=== PATIENT | male | born 1940 | race Caucasian/White ===

== ENCOUNTER 2018-11-04 16:18 | Inpatient (IN) | payer OTHER ==
[~2018-11-04] VITALS: Ht 175.3 cm; Wt 72.6 kg
[~2018-11-04 16:18] MED LIST: Cozaar PO; PLAVIX 75MG PO; ZOCOR PO
[2018-11-04] MEDS ORDERED: ATORVASTATIN CA80 MG (17:09)
[2018-11-04] MEDS ORDERED: PROTONIX IV40 MG (17:09)
[2018-11-04] MEDS ORDERED: TOPROL XL50 MG (17:09)
--- NOTE | 2018-11-04 17:13 | NUR ---
PACIENTE ALERTA Y PORIENTADO POR MORENA ESFERAS QUIEN REFIERE ESTRENIMIENTO Y DOLOR ABDOMINAL.
--- NOTE | 2018-11-04 17:33 | NUR ---
PT ALERTA Y ORIENTADO X3 ESFERAS EVALUADO POR DR MALDONADO. PENDIENTE ADMINISTRAR ENEMA ORDENADO.
--- NOTE | 2018-11-05 02:39 | NUR ---
PTE ALERTA Y ORIENTADO. SE CANALIZA BAJO MEDIDAS ASEPTICAS Y SE ADMINISTRAN IV FLUIDS Y MEDICAMENTO IM DEUCE ORDEN MEDICA. SE ORIENTA A PTE SOBRE TRATAMIENTO EL CUAL REFIERE ENTENDER.
--- NOTE | 2018-11-05 07:28 | NUR ---
SE RECIBE PTE MASCULINO DE 78 YSR ALERA CONCIENTE Y TRANQUILO. PTE CON IVF PATENTE Y MICHAELA DE EDEMA. SE OBSERVA POR CAMBIOS EN VILLA CONDICION.
--- NOTE | 2018-11-05 09:47 | NUR ---
PTE ES EVALUADO POR EL JUDI DOAN QUIE ORDENA TRARAMIENTO DE NELIA DE MUESTRAS TOMADA POR MS.LOPEZ MISHRA.SE NOTIFICA A NATE JUNO[KELI RES[PIRATORIA ABG'S. SE REQUISA ESTUDIO DE RX DE PECHO LA CUAL SE EJECUTA. SE MANTIENE BAJO OBSERVACION
--- NOTE | 2018-11-05 10:56 | NUR ---
MS REARDON COLECTA MUESTRAS PARA TUBOS PILOOS. SE ENTREGAN LOS MISMOS A PERSONAL DE SERVICI[employer].
--- NOTE | 2018-11-05 12:10 | NUR ---
SE NOTIFICA ECHO A PERSONAL DE TURNO. SE COLOCA NGT TO LIS EN FOSA NASAL RT, EL MISMO PATENTE, PE TOLERAW PROCEDIMIENTO. AL MOMENTO DRENA 300ML APROXIMADAMENTE DE RESIDUAL GASRICO COLOR NELL. SE COLOCAN RESTRICCIONES EN EXTREMIDADES SUPERIORES DEUCE ORDEN MEDICA, EXREMIDAD MICHAELA DE EDEMA O ERITEMA, PTE TOLERA LAS MISMAS. PTE ACOMPANADO POR FAMILIAR, DESORIENTADO, AGRESIVO. SE MANTIENE BAJO OBSERVACION, EN CAMA NIVEL MAS BAJO YEE DE IDENTIFICACION Y BARANDAS ELEVADAS.
--- NOTE | 2018-11-05 14:59 | NUR ---
SE RECIBE PTE SOMNOLIENTO EN EVETTE #3 DE UNIDAD DE CRITICO. PTE AL MOMENTO SE CONECTA A MONITOR CARDIACO CON OXIMETRIADE PULSO. PTE SE CANALIZA EN BRAZO NICOLE CON #18 EL CUAL SE ENCUENTRA PATENTE MICHAELA DE EDEMA Y ENROJECIMIENTO. PTE RESTRINGO X2 EN EXTREMIDADES SUPERIORES. PTESE REALIZA ECHO A PTE DEUCE ORDEN MEDICA. PTE SE CONTINUA OBSERVANDO POR CAMBIOS EN VILLA CONDICION.
[2018-11-10] MEDS ORDERED: PLAVIX75 MG PO (18:39)
[2018-11-10] MEDS ORDERED: ZOCOR40 MG PO (18:39)
[2018-11-10] MEDS ORDERED: COZAAR50 MG PO ×2 (18:40)
== END 2018-11-24 11:14 | disposition home or self-care (01) | DRG 329 ==
LOC: ER 16:18 → ICU 11-05 14:14 → ICU-2 11-05 14:14 → SURG 11-05 14:14 → ICU 11-06 17:07 → SURG 11-17 16:28
PROVIDERS: ADMIT Surgery
PROC: B246ZZZ Ultrasonography of Right and Left Heart (ICD-10-PCS; 2018-11-05)
PROC: 02HV33Z Insertion of Infusion Device into Superior Vena Cava, Percutaneous Approach (ICD-10-PCS; 2018-11-06)
PROC: 5A1955Z Respiratory Ventilation, Greater than 96 Consecutive Hours (ICD-10-PCS; 2018-11-07)
PROC: 0BH17EZ Insertion of Endotracheal Airway into Trachea, Via Natural or Artificial Opening (ICD-10-PCS; 2018-11-07)
PROC: 0DTL0ZZ Resection of Transverse Colon, Open Approach (ICD-10-PCS; principal; 2018-11-07 08:15)
PROC: BW21ZZZ Computerized Tomography (CT Scan) of Abdomen and Pelvis (ICD-10-PCS; 2018-11-14)
PROC: 4A033R1 Measurement of Arterial Saturation, Peripheral, Percutaneous Approach (ICD-10-PCS; 2018-11-17)
PROC: 4A12X4Z Monitoring of Cardiac Electrical Activity, External Approach (ICD-10-PCS; 2018-11-17)
PROC: 05H633Z Insertion of Infusion Device into Left Subclavian Vein, Percutaneous Approach (ICD-10-PCS; 2018-11-23)
DX: C18.4 Malignant neoplasm of transverse colon (principal); J95.821 Acute postprocedural respiratory failure; R65.10 Systemic inflammatory response syndrome (SIRS) of non-infectious origin without acute organ dysfunction; J98.11 Atelectasis; K56.690 Other partial intestinal obstruction; R50.82 Postprocedural fever; R09.02 Hypoxemia; K59.09 Other constipation; I25.10 Atherosclerotic heart disease of native coronary artery without angina pectoris; E87.6 Hypokalemia; I10 Essential (primary) hypertension; E78.00 Pure hypercholesterolemia, unspecified; Z98.61 Coronary angioplasty status; Z86.73 Personal history of transient ischemic attack (TIA), and cerebral infarction without residual deficits

== ENCOUNTER 2019-08-29 11:22 | Outpatient (CLI) | payer OTHER ==
[~2019-08-29 11:22] MED LIST changes: +ATORVASTATIN CA80 MG; +COZAAR50 MG PO; +PLAVIX75 MG PO; +PROTONIX IV40 MG; +TOPROL XL50 MG; +ZOCOR40 MG PO
== END 2019-08-29 13:56 | disposition home or self-care (01) ==
LOC: LAB 11:22
DX: C18.8 Malignant neoplasm of overlapping sites of colon (principal)

== ENCOUNTER → 2019-09-13 | Outpatient (CLI) | payer OTHER | END | disposition home or self-care (01) | LOC: TOM 10:33 | DX: C18.8 Malignant neoplasm of overlapping sites of colon (principal) | CPT/HCPCS: 74178; Q9965 ==

== ENCOUNTER 2025-03-26 07:50 | Day surgery (SDC) | payer OTHER ==
[2025-03-20 09:41] LABS: BASO % 0.8 % (0.1-1.2); EOS # 0.15 (0.04-0.54); HEMATOCRIT 41.3 % (40.1-51.0); HEMOGLOBIN 13.9 g/dL (13.7-17.5); LYMPH # 1.81 (1.18-3.74); LYMPH % 23.8 % (19.3-53.1); MEAN CORPUSCULAR HEMOGLOBIN 29.8 pg (25.6-32.2); MONO # 0.53 (0.24-0.82); NEUT # 5.02 (1.56-6.13); NEUT % 66.1 % (34.0-71.1); PLATELET COUNT 218 K/uL (163-369); RED BLOOD COUNT 4.67 M/uL (4.63-6.08); RED CELL DISTRIBUTION WIDTH 11.9 % (11.6-14.4)
[2025-03-20 09:51] LABS: PH,URINE 6.5 (5.0-8.0); URINE APPEARANCE Clear; URINE BILIRRUBIN Negative (NEGATIVE); URINE BLOOD Negative; URINE COLOR Yellow; URINE GLUCOSE Negative (NEGATIVE); URINE KETONE Negative (NEGATIVE); URINE LEUKOCYTE Negative; URINE NITRATE Negative; URINE PROTEIN Trace (NEGATIVE)
[2025-03-20 09:53] LABS: URINE BACTERIA 18.3 uL (0.0-1933); URINE EPITHELIAL CELLS 4.2 uL (0.0-38.8); URINE RBC 4.5 uL (0.0-20.8); URINE WBC 4.2 uL (0.0-23.2)
[2025-03-20 10:07] LABS: INR 1.05; PARTIAL THROMBOPLASTIN TIME 28.4 SECONDS (22.0-34.0); PROTHROMBIN TIME 11.4 SECONDS (9.0-11.5)
[2025-03-20 10:52] LABS: ALBUMIN 4.3 gm/dL (3.4-5.0); BILIRUBIN TOTAL 0.68 mg/dL (0.3-1.2); CALCIUM 9.3 mg/dL (8.5-10.1); CREATININE SERUM 1.28 mg/dL (0.70-1.30); GFR 53.29; GLOBULINA 3.1 G/DL (2.4-3.5); POTASSIUM 4.37 mEq/L (3.5-5.1); TOTAL PROTEIN 7.4 gm/dL (6.4-8.2)
[~2025-03-26 07:50] MED LIST changes: +ISOSORBIDE DINI30 MG PO; +NORVASC5 MG PO; +PROTONIX40 MG PO; +ZETIA10 MG PO
[2025-03-26] MEDS ORDERED: CEFAZOLIN SODIUM 1,000 MG VIAL ONE ×2 (10:59→15:21)
[2025-03-26] MEDS ORDERED: LIDOCAINE HCL 1% 20 ML VIAL IJ ONE ×2 (12:34→12:46)
[2025-03-26] MEDS ORDERED: LIDOCAINE HCL 1%/EPINEPHRINE 20ML VIAL IJ ONE (12:35)
[2025-03-26] MEDS ORDERED: CEFAZOLIN SODIUM 1,000 MG VIAL IV ONE (13:30)
[2025-03-26] MEDS ORDERED: CEFAZOLIN SODIUM 1,000 MG VIAL IV SCH (14:00)
== END 2025-03-26 17:20 | disposition home or self-care (01) ==
LOC: CIR.AMB 07:50
PROVIDERS: ATTEND Specialist
DX: T82.594A Other mechanical complication of infusion catheter, initial encounter (principal); C18.9 Malignant neoplasm of colon, unspecified